=== PATIENT | male | born 1925 | race Caucasian/White ===

== ENCOUNTER 2016-09-27 08:49 | Emergency (ER) | payer OTHER ==
[2016-09-27 09:07] VITALS: BP 139/65; PULSE 54; RESP 18; TEMP 94; O2SAT 95
--- NOTE | 2016-09-27 09:45 | UCPHY ---
H & P Time Seen by Provider: 09/27/16 09:23 Patient Type: Established HPI/ROS: This patient has swelling and pain to the left 1st metatarsophalangeal joint that started over the past 24 hours. There is mild swelling associated with this. He explains that the pain is minimal at baseline but is quite tender to touch and there is also significant pain with walking or movement of the great toe. He has never had these symptoms before. He reports no exacerbating factors other than those already noted in HPI. ROS: No fevers. No other musculoskeletal acute pain. No trauma to the area recently. 5 point ROS is otherwise negative. Past Medical/Surgical History: Hypertension Previous ID Epilepsy otherwise healthy No previous gout Social History: Patient does eat meat. He does not drink alcohol. Smoking Status: Never smoked Physical Exam: Physical Exam Vital signs are normal. General: No acute distress Eyes: Pupils equal and react to light. Extraocular motions are intact. Lungs: No respiratory distress. Cardiac: Brisk capillary refill is intact throughout. Pulses are 2+ and symmetric in the affected extremity. Extremities: Atraumatic normal except for his left foot exam Left foot: Patient has mild swelling tenderness and slight erythema to the 1st metatarsophalangeal joint. No significant warmth to touch. He has increased pain with movement of the toe. No ecchymosis. No other abnormal findings. Skin: No rash or pallor. Neuro: Alert and oriented x3 with no sensorimotor deficits. Initial differential diagnosis: Flagler arthropathy-gout versus pseudogout. Doubt septic joint Constitutional: Initial Vital Signs Temperature (C) 34.4 C L 09/27/16 09:05 Heart Rate 54 L 09/27/16 09:05 Respiratory Rate 18 09/27/16 09:05 Blood Pressure 139/65 H 09/27/16 09:05 O2 Sat (%) 95 09/27/16 09:05 O2 Delivery Mode Room Air Allergies/Adverse Reactions: No Known Allergies Allergy (Verified 01/14/15 09:56) Home Medications: Medication Instructions Recorded Aspirin [Aspir 81] 81 mg PO 12/04/12 Atenolol 25 mg PO 12/04/12 Lisinopril 10 mg PO 12/04/12 Simvastatin [Zocor 10 mg (RX)] 10 mg PO DAILY18 12/04/12 Vits C,D 12/04/12 lamOTRIGine [LAMICTAL ODT (BLUE)] 12/04/12 Colchicine [Colchicine (*)] 1.2 mg PO AD #9 tab 09/27/16 MDM/Departure - [facility] ED Course/Re-evaluation: The patient's clinical findings are classic for gout. I counseled him regarding this. He is placed in a postop shoe. We will treat him with colchicine. He understands the need to return or go to the emergency department if he has any worsening despite the treatment plan - Depart Disposition: Home, Routine, Self-Care Clinical Impression: Gout attack Qualifiers: Gout site: toe Gout etiology: unspecified cause Laterality: left Qualified Code (s): M10.9 - Gout, unspecified Condition: Good Instructions: Low Purine Diet (ED), Gout (ED) Additional Instructions: Diagnosis: Gouty attack great toe Plan: Drink plenty fluids Follow the low purine diet Postop shoe for comfort while up and about Culture seen as directed Tylenol for discomfort in addition as needed. Follow up with primary care physician for any ongoing symptoms despite the treatment plan Return for any significant worsening despite treatment plan Prescriptions: Colchicine [Colchicine (*)] 1.2 mg PO AD #9 tab Referrals: Kathy Melvin MD [Medical Doctor] - As per Instructions Nelly Alcaraz MD [Medical Doctor] - As per Instructions - PQRS PQRS Measurement: 134: Depression screening and followup, PRIME MD-PHQ2 (12 years and older) Over the last 2 weeks, how often have you been bothered by any of the following problems? 1. Feeling down, depressed, or hopeless? 2. Little interest or pleasure in doing things? Patient answered no to both 1 and 2 130: Documentation of medications. Reviewed all patient medications, doses, route and frequency. 226: Do you smoke? [No.] 47: 65 and older: Advanced care planning. Patient designates surrogate decision maker as spouse 51: 18 years old and older with diagnosis of COPD, spirometry performance. NA 52: 18 years old and older with COPD and symptoms of COPD or FEV1<60% predicted prescribed a B Agonist. NA
== END 2016-09-27 10:26 | disposition home or self-care (01) ==
LOC: CED 08:49
DX: M10.9 Gout, unspecified (principal); I10 Essential (primary) hypertension; I25.2 Old myocardial infarction; G40.909 Epilepsy, unspecified, not intractable, without status epilepticus
CPT/HCPCS: 99214-PO; G0463-PO

== ENCOUNTER 2016-11-17 10:38 | Day surgery (SDC) | payer OTHER ==
[2016-11-17] MEDS ORDERED: LIDOCAINE 1% 2 ML INJ ONE (11:00)
[2016-11-17] MEDS ORDERED: ceFAZolin 2 GM/DEXTROSE 100 ML IV ONE (11:30)
[2016-11-17] MEDS ORDERED: BUPIVACAINE 0.5% 30 ML SDV ONE (12:23)
[2016-11-17] MEDS ORDERED: SKIN ADHESIVE (DERMABOND) 1 EACH TP ONE (12:23)
[2016-11-17] MEDS ORDERED: fentaNYL 100 MCG/2 ML INJ ONE (12:35)
[2016-11-17] MEDS ORDERED: PROPOFOL 200 MG/20 ML VIAL ONE ×2 (12:36)
[2016-11-17] MEDS ORDERED: DEXAMETHASONE 4 MG/ML VIAL ONE (13:42)
[2016-11-17] MEDS ORDERED: ONDANSETRON 4 MG/2 ML VIAL ONE (13:42)
--- NOTE | 2016-11-17 15:26 | GOP ---
[f rep st] OPERATIVE REPORT DATE OF OPERATION: 11/17/2016 SURGEON: Liam De Jesus MD TRAFFIC ADMINISTRATOR: Murray Hernández SA ANESTHESIA: General with single-shot popliteal block. PREOPERATIVE DIAGNOSIS: Right foot second, third, fourth hammertoes and metatarsophalangeal joint c ontractures POSTOPERATIVE DIAGNOSIS: Right foot second, third, fourth hammertoes and metatarsophalangeal joint contractures PROCEDURE PERFORMED: 1. Right second, third, fourth hammertoe corrections. 2. Right second and third metatarsophalangeal joint capsulotomy with extensor tenotomies and length ening. FINDINGS: SPECIMENS: None. ESTIMATED BLOOD LOSS: 10 mL. INDICATIONS: This is an 89-year-old male with significant recurrent hammertoe deformities and these have bothered in essentially any shoe wear and he has significant crossing over. 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 I counseled him in the clinic about both hammer toe corrections with the a MTP revision and without. I did discuss the high likelihood of recurrenc e of the hammertoes with the first MTP being in valgus and having arthritis. However, he did not re ally have pain there and did not want a to undergo a fusion, so he elected to just correct the hamme rtoes. We discussed risks of recurrence, dysvascularity, wound complications, nonunion, malunion, c ontinued pain. He elected to proceed. Informed consent obtained. All questions were answered. He was marked preoperatively. DESCRIPTION OF PROCEDURE: He was taken to the operating suite. Popliteal block was administered pe r Anesthesia. He was prepped and draped in the normal fashion. A time-out was performed, verifying site, side, location, and all were in agreement on the team. The tourniquet was inflated after Esm arch exsanguination. I made incisions over the PIP joints of 2, 3, and 4. I dissected out the PIP joints which were quite deformed and there was significant scarring, given he had previous hammertoe corrections. I then performed resections of the proximal phalanges of these for resection arthropl asties with the sagittal saw. I then made an incision in the second web space, protecting neurovasc ular structures. I did extensor tenotomies of both brevis tendons 2 and 3 and extensor tendon lengt hening of the extensor tendon longi. I then did perform capsulotomies with a McGlamry elevator of b lyric these toes, achieving further correction. I then pinned the toes, starting with number 2, with 1.6 mm K-wires, starting antegrade at the PIP, and then retrograde. I elected not to pin across the MTP, as these sat well, and as I tried to pin across the MTP it created more of a plantarflexion type deformity. I got all his toes to sit in a g ood plane and felt a good correction. The tourniquet was deflated. He did achieve vascularity and good capillary refill of all toes. Of note, the 3rd toe did take longer to a spanish moss picker than the rest of the toes. The area was thoroughly irrigated, closed with 3-0 Vicryl, 4-0 nylon, taken to PACU in stable condition. COMPLICATIONS: None. DRAINS: None. DISPOSITION: Stable. /[id number]/MODL
== END 2016-11-17 16:03 | disposition home or self-care (01) ==
LOC: FSGY 10:38
PROVIDERS: ATTEND Orthopaedic Surgery
PROC: 0SNM0ZZ Release Right Metatarsal-Phalangeal Joint, Open Approach (ICD-10-PCS; principal; 2016-11-17 13:00)
PROC: 0QTQ0ZZ Resection of Right Toe Phalanx, Open Approach (ICD-10-PCS; principal; 2016-11-17 13:00)
DX: M20.41 Other hammer toe(s) (acquired), right foot (principal); I25.10 Atherosclerotic heart disease of native coronary artery without angina pectoris; I10 Essential (primary) hypertension; I25.2 Old myocardial infarction; Z95.5 Presence of coronary angioplasty implant and graft; Z95.1 Presence of aortocoronary bypass graft
CPT/HCPCS: C1713; J0690; J1100; J2405; J2704; J3010